=== PATIENT | female | born 1935 | race Caucasian/White ===

== ENCOUNTER → 2022-06-21 13:46 | Outpatient (CLI) | payer MEDICARE, BC, SELFPAY ==
--- NOTE | 2022-06-21 | DI.RAD.S_ITS ---
PROCEDURE: XR ELBOW RT MIN 3V INDICATIONS: right elbow pain TECHNIQUE: 3 views of the elbow were acquired. COMPARISON: None. FINDINGS: Bones: No fractures or dislocations. No suspicious bony lesions. Soft tissues: Large elbow joint effusion. No suspicious soft tissue calcifications. IMPRESSION: Large elbow joint effusion and occult elbow fracture cannot be excluded. If indicated, short-term follow-up x-ray in 10-14 days could be performed or cross-sectional imaging such as CT or MRI. Dictated by: Naren Boudreaux Shirley Interpreted: Dewey Campo MD on 06/21/2022 at 14:15 Transcribed by: CHAPO on 06/21/2022 at 14:16 Approved by: Dewey Campo M.D. on 06/21/2022 at 16:52
== END ==
PROVIDERS: Referring Provider Family Medicine; Visit Provider Family Medicine
DX: M25.521 Pain in right elbow (principal); M25.421 Effusion, right elbow
CPT/HCPCS: 73080